=== PATIENT | male | born 1960 | race Caucasian/White ===

== ENCOUNTER 2017-05-03 20:21 | Emergency (ER) | payer OTHER ==
[~2017-05-03] VITALS: Ht 175.3 cm; Wt 99.5 kg
[~2017-05-03 20:21] MED LIST: ALLO100T PO; COLC0.6T6 PO; HYDR-3498 PO; HYDR-762 PO; IBUP800T25 PO
[2017-05-03 20:30] VITALS: Ht 175.3 cm; Wt 99.5 kg
[2017-05-03] MEDS ORDERED: KETOROLAC 30 MG INJ IM STA (22:05)
--- NOTE | 2017-05-03 22:23 | ERD ---
ER Documentation Chief Complaint Date/Time DATE: 05/03/17 TIME: 22:20 Chief Complaint L shoulder pain x 2 weeks went to pcp last wk had ekg and cxr HPI Patient is a 56-year-old male with a past medical history of gout who presents to the ED with left neck left shoulder left scapula and left arm pain 3 weeks. He states that the pain came on suddenly 3 weeks ago. He denies chest pain or cough or shortness of breath. He denies leg pain or leg swelling. 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 He states that he has pain on palpation on that whole area. She also complains of mild numbness and tingling in his left arm. He denies headache or dizziness, blurry vision or hearing loss. He states that he went to his primary care who did an EKG and a chest x-ray was within normal limits. He also has been taking Menoken for his pain which is helped minimally with his symptoms. ROS All systems reviewed and are negative except as per history of present illness. Medications Home Meds Active Scripts Methylprednisolone* (Medrol* DOSE PACK) 4 Mg/Dose-Pack Tab.ds.pk, 4 MG PO . DIRECTED for 5 Days, PACKET Prov:MARIBETH LAINEZ PA-C 05/03/17 Tramadol HCl (Tramadol HCl) 50 Mg Tablet, 50 MG PO Q6 Y for PAIN, #20 TAB Prov:MARIBETH LAINEZ PA-C 05/03/17 Hydrocodone Bit-Acetaminophen* (Menoken*) 10-325 Mg Tablet, 1 TAB PO Q4H Y for PAIN, #15 TAB Prov:JERI BUTLER PA-C 05/28/16 Colchicine* (Colcrys*) 0.6 Mg Tablet, 0.6 MG PO as directed, #3 TAB Prov:JERI BUTLER PA-C 05/28/16 Ibuprofen* (Ibuprofen*) 800 Mg Tab, 800 MG PO Q6H Y for PAIN, #10 TAB Prov:SUE BLOCK DO 07/22/15 Hydrocodone Bit-Acetaminophen* ([place]*) 5-325 Mg Tab, 1 TAB PO Q4H Y for PAIN, # 14 TAB Prov:SUE BLOCK DO 07/22/15 Colchicine* (Colcrys*) 0.6 Mg Tablet, 0.6 MG PO BID, #10 TAB Prov:GREEN,SUE DO 07/22/15 Reported Medications Allopurinol* (Allopurinol*) 100 Mg Tablet, 100 MG PO BID 12/23/11 Allergies Allergies: Coded Allergies: No Known Allergies (Verified Allergy, Mild, NONE, 02/08/12) PMhx/Soc History of Surgery: Yes (KIDNEY) Anesthesia Reaction: No Hx Neurological Disorder: No Hx Respiratory Disorders: No Hx Cardiac Disorders: No Hx Psychiatric Problems: No Hx Miscellaneous Medical Probl: Yes (GOUT) Hx Alcohol Use: No Hx Substance Use: No Hx Tobacco Use: No Smoking Status: Never smoker FmHx Family History: No coronary disease, No diabetes, No other Physical Exam Vitals Vital Signs Date Time Temp Pulse Resp B/P Pulse Ox O2 Delivery O2 Flow Rate FiO2 05/03/17 20:30 96.8 62 20 154/82 97 Physical Exam GENERAL: Well-developed, well-nourished male. Appears in no acute distress. ENT: Moist mucous membranes. No uvula deviation. No kissing tonsils. No exudates. No spinal step-offs or deformities. No spinal tenderness. Range of motion of neck intact positive cervical productive colopathy on the left side. Tenderness to the sternocleidomastoid as well as the scapula and the inferior scapula. NECK: Supple. No lymphadenopathy or thyromegaly. No meningismus. negative kernig. negative brudinski. LUNG: Clear to auscultation bilaterally. No rhonchi, wheezing, rales or coarse breath sounds. HEART: Regular rate and rhythm. No murmurs, rubs or gallops. Extremities: Equal pulses bilaterally. No peripheral clubbing, cyanosis or edema. No unilateral leg swelling. No snuffbox tenderness. Radius, ulnar and median nerve intact. Tenderness to the left shoulder. Range of motion intact. Full extension and elevation however with pain. No erythema or swelling. No warmth. NEUROLOGIC: Alert and oriented. Moving all four extremities. 5/5 strength in all extremities. Normal speech. Steady gait. SKIN: Normal color. Warm and dry. No rashes or lesions. Capillary refill < 2 seconds Results 24 hrs Laboratory Tests Test 05/03/17 22:45 Uric Acid 6.3mg/dl Current Medications Medications (Trade) Dose Ordered Sig/Smiley Route PRN Reason Start Time Stop Time Status Last Admin Dose Admin Ketorolac Tromethamine (Toradol) 30 mg ONCE STAT IM 05/03/17 22:05 05/03/17 22:07 DC 05/03/17 22:50 Tramadol HCl (Ultram) 50 mg ONCE ONCE PO 05/04/17 00:00 05/04/17 00:01 Procedures/MDM ER COURSE: I kept the patient and/or family informed of laboratory and diagnostic imaging results throughout the emergency room course. IMAGING STUDIES EKG performed, read by dR Braxton 54bpm, normal sinus rhythm, normal axis, no acute ST segment changes, no T wave inversion [place] [id number] Radiology Main Line: [phone] DIAGNOSTIC IMAGING REPORT Patient: MARY CALIX : 1960 Age: 56 Sex: M MR #: [id number] DOS: 05/03/175 Ordering MD: MARIBETH LAINEZ PA-C Location: [facility] Room/Bed: PROCEDURE: XR scapula. CLINICAL INDICATION: Pain. TECHNIQUE: 2 views of the left scapula were obtained. COMPARISON: There are no similar studies submitted for comparison. FINDINGS: There is no acute fracture or dislocation.No destructive osseous lesion is identified.The acromioclavicular joint is intact. The visualized portions of the chest are within normal limits. IMPRESSION: No acute fracture or dislocation. RPTAT: HIKT .Art Saldana MD, Date Time Electronically viewed and signed by .Art Saldana MD, MD on 05/03/2017 23:07 .T/ CC: MARIBETH LAINEZ PA-C [place] [id number] Radiology Main Line: [phone] DIAGNOSTIC IMAGING REPORT Patient: MARY CALIX : 1960 Age: 56 Sex: M MR #: [id number] DOS: 05/03/17 2205 Ordering MD: MARIBETH LAINEZ PA-C Location: [facility] Room/Bed: PROCEDURE: XR shoulder. CLINICAL INDICATION: Trauma. TECHNIQUE: Three views of the left shoulder were obtained. COMPARISON: There are no similar studies submitted for comparison. FINDINGS: There is no acute fracture or dislocation.No destructive osseous lesion is identified.The acromioclavicular joint is intact. The visualized portions of the chest are within normal limits. IMPRESSION: No acute fracture or dislocation. RPTAT: HIKT .Art Saldana MD, Date Time Electronically viewed and signed by .Art Saldana MD, MD on 05/03/2017 23:08 .T/ CC: MARIBETH LAINEZ PA-C MEDICATIONS Toradol and tramadol tolerated well with no adverse reaction is seen improvement in symptoms. MEDICAL DECISION MAKING: This is a 56-year-old male who presents with left neck, left shoulder and left scapula and arm pain 3 weeks. Vital signs were reviewed. Patient is afebrile. Patient is not hypoxic. Patient is not toxic or ill-appearing. Patient is nontoxic or ill-appearing. X-rays of by radiologist unremarkable for fracture dislocation. Uric acid was within normal limits. Patient likely has muscle strain versus muscle sprain versus cervical radiculopathy versus nerve impingement. Low suspicion for dislocation, fracture, septic joint, compartment syndrome, osteomyelitis, cellulitis, avascular necrosis, neurological injury, vascular injury, tendon laceration. Low suspicion for dislocation, fracture, epidural abscess, herniation, osteomyelitis, meningitis, neurological deficit. Low suspicion for ACS, PE, AAA, dissection, DVT DISCHARGE: At this time, patient is stable for discharge and outpatient management with no new complaints during the ER course. Patient was sent home with tramadol and a Medrol Dosepak copy of all imaging reports and follow-up with orthopedic.. Patient will be discharged home with instructions to recheck for new or worsening symptoms such as fever, nausea, weakness, LOC and to follow up with primary care in the next 1-2 days. Patient was advised to return to the ER for any new or worsening symptoms. Plan was discussed and patient and/or family understands and agrees. Home instructions were given. Departure Diagnosis: Primary Impression: Shoulder pain, left Chronicity: acute Qualified Code: M25.512 - Acute pain of left shoulder Condition: Stable MARIBETH LAIENZ PA-C May 03, 2017 22:23
--- NOTE | 2017-05-03 23:07 | RADRPT ---
PROCEDURE: XR scapula. CLINICAL INDICATION: Pain. TECHNIQUE: 2 views of the left scapula were obtained. COMPARISON: There are no similar studies submitted for comparison. FINDINGS: There is no acute fracture or dislocation.No destructive osseous lesion is identified.The acromiocla vicular joint is intact. The visualized portions of the chest are within normal limits. IMPRESSION: No acute fracture or dislocation. RPTAT: HIKT .Art Saldana MD, MD Date Time Electronically viewed and signed by .Art Saldana MD, on 05/03/2017 23:07 .T/
--- NOTE | 2017-05-03 23:08 | RADRPT ---
PROCEDURE: XR shoulder. CLINICAL INDICATION: Trauma. TECHNIQUE: Three views of the left shoulder were obtained. COMPARISON: There are no similar studies submitted for comparison. FINDINGS: There is no acute fracture or dislocation.No destructive osseous lesion is identified.The acromiocla vicular joint is intact. The visualized portions of the chest are within normal limits. IMPRESSION: No acute fracture or dislocation. RPTAT: HIKT .Art Saldana MD, MD Date Time Electronically viewed and signed by .Art Saldana MD, MD on 05/03/2017 23:08 .T/
[2017-05-03] MEDS ORDERED: TRAM50TA2 PO (23:54)
[2017-05-03] MEDS ORDERED: MED4DP PO (23:54)
[2017-05-04] MEDS ORDERED: traMADol 50 MG TAB PO ONE
[2017-05-04 00:11] VITALS: BP 143/76; PULSE 70; RESP 16
== END 2017-05-04 00:12 | disposition home or self-care (01) ==
LOC: FTE 20:21
DX: M25.512 Pain in left shoulder (principal); R00.2 Palpitations
CPT/HCPCS: 73010; 73030; 84560; 93005; 96372; 99284; J1885

== ENCOUNTER 2017-09-22 23:08 | Emergency (ER) | payer OTHER ==
[~2017-09-22] VITALS: Ht 167.6 cm; Wt 97.9 kg
[~2017-09-22 23:08] MED LIST changes: +MED4DP PO; +TRAM50TA2 PO
[2017-09-22 23:25] VITALS: Ht 167.6 cm; Wt 97.9 kg
--- NOTE | 2017-09-22 23:38 | ERD ---
ER Documentation Chief Complaint Chief Complaint CP since yesterday HPI The patient is a 57-year-old male, presenting to the ER because of substernal chest discomfort intermittently for 1 day, 04/24, no aggravating or relieving factor, denies chest pain with exertion/vomiting/diaphoresis. He denies fever, chills, neck pain, dyspnea, abdominal pain, vomiting. He complains of dysuria and low back pain similar to symptoms he had when he had kidney stones. He does not smoke nor drink Past medical history: Gout, hypertension, history of kidney stone, cholelithiasis, right lung nodule Past surgical history: Kidney stone ROS All systems reviewed and are negative except as per history of present illness. Medications Home Meds Active Scripts Hydrocodone/Acetaminophen ([facility] 5-325 Tablet) 1 Each Tablet, 1 TAB PO Q6H Y for PAIN, #7 TAB Prov:ROBERT VELOZ MD 09/23/17 Methylprednisolone* (Medrol* DOSE PACK) 4 Mg/Dose-Pack Tab.ds.pk, 4 MG PO . DIRECTED for 5 Days, PACKET Prov:MARIBETH LAINEZ PA-C 05/03/17 Tramadol HCl (Tramadol HCl) 50 Mg Tablet, 50 MG PO Q6 Y for PAIN, #20 TAB Prov:MARIBETH LAINEZ PA-C 05/03/17 Hydrocodone Bit-Acetaminophen* ([facility]*) 10-325 Mg Tablet, 1 TAB PO Q4H Y for PAIN, #15 TAB Prov:JERI BUTLER PA-C 05/28/16 Ibuprofen* (Ibuprofen*) 800 Mg Tab, 800 MG PO Q6H Y for PAIN, #10 TAB Prov:SUE BLOCK DO 07/22/15 Reported Medications Ibuprofen* (Ibuprofen*) 600 Mg Tablet, 600 MG PO Q6H Y for PAIN, TAB 09/23/17 Allopurinol* (Allopurinol*) 100 Mg Tablet, 100 MG PO BID 12/23/11 Discontinued Scripts Colchicine* (Colcrys*) 0.6 Mg Tablet, 0.6 MG PO as directed, #3 TAB Prov:JERI BUTLER PA-C 05/28/16 Hydrocodone Bit-Acetaminophen* ([facility]*) 5-325 Mg Tab, 1 TAB PO Q4H Y for PAIN, # 14 TAB Prov:SUE BLOCK DO 07/22/15 Colchicine* (Colcrys*) 0.6 Mg Tablet, 0.6 MG PO BID, #10 TAB Prov:SUE BLOCK DO 07/22/15 Allergies Allergies: Coded Allergies: No Known Allergies (Unverified Allergy, Mild, NONE, 09/23/17) PMhx/Soc History of Surgery: Yes (KIDNEY) Anesthesia Reaction: No Hx Neurological Disorder: No Hx Respiratory Disorders: No Hx Cardiac Disorders: No Hx Psychiatric Problems: No Hx Miscellaneous Medical Probl: Yes (GOUT) Hx Alcohol Use: No Hx Substance Use: No Hx Tobacco Use: No Physical Exam Vitals Vital Signs Date Time Temp Pulse Resp B/P Pulse Ox O2 Delivery O2 Flow Rate FiO2 09/22/17 23:45 97.6 89 20 150/81 97 Room Air 09/22/17 23:25 97.6 66 20 146/87 97 Physical Exam Const: No acute distress. Head: Atraumatic. Eyes: Normal Conjunctiva. ENT: Normal External Ears, Nose and Mouth. Neck: Full range of motion. No meningismus. Resp: Clear to auscultation bilaterally. Cardio: Regular rate and rhythm. Abd: Soft, non distended, normal bowel sounds, minimal right lumbar tenderness Skin: No petechiae or rashes. Back: No midline or flank tenderness. Ext: No cyanosis, or edema. Neur: Awake and alert. No focal deficit Psych: Normal Mood and Affect. Result Diagram: 09/22/17 2343 09/22/17 2343 Results 24 hrs Laboratory Tests Test 09/22/17 23:43 09/23/17 01:07 09/23/17 02:14 White Blood Count 8.410^3/ul Red Blood Count 5.1210^6/ul Hemoglobin 15.2g/dl Hematocrit 45.5% Mean Corpuscular Volume 88.9fl Mean Corpuscular Hemoglobin 29.7pg Mean Corpuscular Hemoglobin Concent 33.4g/dl Red Cell Distribution Width 13.2% Platelet Count 79334^3/UL Mean Platelet Volume 10.4fl Neutrophils % 45.9% Lymphocytes % 42.7% Monocytes % 9.6% Eosinophils % 1.1% Basophils % 0.5% Nucleated Red Blood Cells % 0.0/100WBC Neutrophils # 3.910^3/ul Lymphocytes # 3.610^3/ul Monocytes # 0.810^3/ul Eosinophils # 0.110^3/ul Basophils # 0.010^3/ul Nucleated Red Blood Cells # 0.010^3/ul Sodium Level 143mmol/L Potassium Level 4.2mmol/L Chloride Level 104mmol/L Carbon Dioxide Level 29mmol/L Anion Gap 14 Blood Urea Nitrogen 15mg/dl Creatinine 1.36mg/dl Glucose Level 92mg/dl Calcium Level 9.9mg/dl Total Bilirubin 0.3mg/dl Direct Bilirubin 0.00mg/dl Indirect Bilirubin 0.3mg/dl Aspartate Amino Transf (AST/SGOT) 58IU/L Alanine Aminotransferase (ALT/SGPT) 106IU/L Alkaline Phosphatase 78IU/L Troponin I < 0.012ng/ml 0.013ng/ml Total Protein 8.5g/dl Albumin 4.7g/dl Globulin 3.80g/dl Albumin/Globulin Ratio 1.23 Lipase 97U/L Bedside Urine pH (LAB) 5.5 Bedside Urine Protein (LAB) Negative Bedside Urine Glucose (UA) Negative Bedside Urine Ketones (LAB) Negative Bedside Urine Blood Negative Bedside Urine Nitrite (LAB) Negative Bedside Urine Leukocyte Esterase (L Negative Current Medications Medications (Trade) Dose Ordered Sig/Smiley Route PRN Reason Start Time Stop Time Status Last Admin Dose Admin Morphine Sulfate (morphine) 2 mg ONCE ONCE IV 09/23/17 00:00 09/23/17 00:01 DC 09/23/17 00:22 Ondansetron HCl (Zofran Inj) 4 mg ONCE STAT IV 09/22/17 23:49 09/22/17 23:51 DC 09/23/17 00:22 Procedures/MDM EK hours read by emergency physician Rate/Rhythm: Normal Sinus Rhythm 65 beats/min QRS, ST, T-waves: No ST elevation, no T inversion Impression: Normal EKG EK:38 hours read by emergency physician Rate/Rhythm: Sinus Bradycardia 54 beats/min QRS, ST, T-waves: No ST elevation, nonspecific T abnormality Impression: Abnormal EKG [place] [id number] Radiology Main Line: [phone] DIAGNOSTIC IMAGING REPORT Patient: MARY CALIX : 1960 Age: 57 Sex: M [id number] [id number] DOS: 09/22/17 2349 Ordering MD: ROBERT VELOZ MD Location: E/R Room/Bed: PROCEDURE: Portable chest x-ray. CLINICAL INDICATION: Abdominal pain. TECHNIQUE: Portable AP view of the chest. COMPARISON: None. FINDINGS: No pulmonary edema or conolidation is identified. The cardiac silhouette is magnified. No pleural effusion is seen. There is no pneumothorax. There is no pneumoperitoneum. IMPRESSION: 1. No evidence of acute cardiopulmonary disease. 2. No pneumoperitoneum. RPTAT: HTAR .Kuldeep Clements MD, MD Date Time Electronically viewed and signed by .Kuldeep Clements MD, MD on 09/23/2017 00:37 .R/ CC: ROBERT VELOZ MD MEDICAL MAKING DECISION: The patient is a 57-year-old male, presenting with acute chest pain and back pain of unclear etiology. He was treated with morphine 2 mg IV for pain and Zofran 4 IV for nausea with good response. He remained well, without any symptoms in the emergency department and wanted to go home The differential diagnoses for acute chest pain considered include but are not limited to acute coronary syndrome, acute myocardial infarction, pericarditis, pulmonary embolism, aortic dissection, pneumonia, pleural effusion, pneumothorax , GERD, chest wall pain. The differential diagnoses for acute back pain considered include but are not limited to caudal equina syndrome, spinal abscess, DJD, diskitis, lumbar radiculopathy. Departure Diagnosis: Primary Impression: Chest pain Additional Impression: Back pain Condition: Good Comments He was discharged with [facility] The patient presents with chest pain and I considered pulmonary embolism, aortic dissection, pneumothorax among other diagnoses. Evaluation for acute coronary syndrome was performed. The HEART score (www.mdcalc.com) was utilized for risk stratification and found to be <= 3. Repeat EKG and troponin @ 3 hours were unchanged. Based on this evaluation the patients risk of major adverse cardiac events is <1%. Shared decision making occurred with patient and the decision has been made to discharge the patient for outpatient evaluation and functional study within 72 hours. I discussed the findings with the patient. I advised the patient to follow-up with his annealer in about 1-2 days, sooner if needed and return if any concern. Disclaimer: Inadvertent spelling and grammatical errors are likely due to EHR/ dictation software use and do not reflect on the overall quality of patient care. Also, please note that the electronic time recorded on this note does not necessarily reflect the actual time of the patient encounter. ROBERT VELOZ MD Sep 22, 2017 23:38
--- NOTE | 2017-09-22 23:38 | ERD ---
ER Documentation Chief Complaint Chief Complaint CP since yesterday HPI The patient is a 57-year-old male, presenting to the ER because of substernal chest discomfort intermittently for 1 day, 04/24, no aggravating or relieving factor, denies chest pain with exertion/vomiting/diaphoresis. He denies fever, chills, neck pain, dyspnea, abdominal pain, vomiting. He complains of dysuria and low back pain similar to symptoms he had when he had kidney stones. He does not smoke nor drink Past medical history: Gout, hypertension, history of kidney stone, cholelithiasis, right lung nodule Past surgical history: Kidney stone ROS All systems reviewed and are negative except as per history of present illness. Medications Home Meds Active Scripts Hydrocodone/Acetaminophen ([place] 5-325 Tablet) 1 Each Tablet, 1 TAB PO Q6H Y for PAIN, #7 TAB Prov:ROBERT VELOZ MD 09/23/17 Methylprednisolone* (Medrol* DOSE PACK) 4 Mg/Dose-Pack Tab.ds.pk, 4 MG PO . DIRECTED for 5 Days, PACKET Prov:MARIBETH LAINEZ PA-C 05/03/17 Tramadol HCl (Tramadol HCl) 50 Mg Tablet, 50 MG PO Q6 Y for PAIN, #20 TAB Prov:MARIBETH LAINEZ PA-C 05/03/17 Hydrocodone Bit-Acetaminophen* ([place]*) 10-325 Mg Tablet, 1 TAB PO Q4H Y for PAIN, #15 TAB Prov:JERI BUTLER PA-C 05/28/16 Ibuprofen* (Ibuprofen*) 800 Mg Tab, 800 MG PO Q6H Y for PAIN, #10 TAB Prov:SUE BLOCK DO 07/22/15 Reported Medications Ibuprofen* (Ibuprofen*) 600 Mg Tablet, 600 MG PO Q6H Y for PAIN, TAB 09/23/17 Allopurinol* (Allopurinol*) 100 Mg Tablet, 100 MG PO BID 12/23/11 Discontinued Scripts Colchicine* (Colcrys*) 0.6 Mg Tablet, 0.6 MG PO as directed, #3 TAB Prov:JERI BUTLER PA-C 05/28/16 Hydrocodone Bit-Acetaminophen* ([place]*) 5-325 Mg Tab, 1 TAB PO Q4H Y for PAIN, # 14 TAB Prov:SUE BLOCK DO 07/22/15 Colchicine* (Colcrys*) 0.6 Mg Tablet, 0.6 MG PO BID, #10 TAB Prov:SUE BLOCK DO 07/22/15 Allergies Allergies: Coded Allergies: No Known Allergies (Unverified Allergy, Mild, NONE, 09/23/17) PMhx/Soc History of Surgery: Yes (KIDNEY) Anesthesia Reaction: No Hx Neurological Disorder: No Hx Respiratory Disorders: No Hx Cardiac Disorders: No Hx Psychiatric Problems: No Hx Miscellaneous Medical Probl: Yes (GOUT) Hx Alcohol Use: No Hx Substance Use: No Hx Tobacco Use: No Physical Exam Vitals Vital Signs Date Time Temp Pulse Resp B/P Pulse Ox O2 Delivery O2 Flow Rate FiO2 09/22/17 23:45 97.6 89 20 150/81 97 Room Air 09/22/17 23:25 97.6 66 20 146/87 97 Physical Exam Const: No acute distress. Head: Atraumatic. Eyes: Normal Conjunctiva. ENT: Normal External Ears, Nose and Mouth. Neck: Full range of motion. No meningismus. Resp: Clear to auscultation bilaterally. Cardio: Regular rate and rhythm. Abd: Soft, non distended, normal bowel sounds, minimal right lumbar tenderness Skin: No petechiae or rashes. Back: No midline or flank tenderness. Ext: No cyanosis, or edema. Neur: Awake and alert. No focal deficit Psych: Normal Mood and Affect. Result Diagram: 09/22/17 2343 09/22/17 2343 Results 24 hrs Laboratory Tests Test 09/22/17 23:43 09/23/17 01:07 09/23/17 02:14 White Blood Count 8.410^3/ul Red Blood Count 5.1210^6/ul Hemoglobin 15.2g/dl Hematocrit 45.5% Mean Corpuscular Volume 88.9fl Mean Corpuscular Hemoglobin 29.7pg Mean Corpuscular Hemoglobin Concent 33.4g/dl Red Cell Distribution Width 13.2% Platelet Count 63489^3/UL Mean Platelet Volume 10.4fl Neutrophils % 45.9% Lymphocytes % 42.7% Monocytes % 9.6% Eosinophils % 1.1% Basophils % 0.5% Nucleated Red Blood Cells % 0.0/100WBC Neutrophils # 3.910^3/ul Lymphocytes # 3.610^3/ul Monocytes # 0.810^3/ul Eosinophils # 0.110^3/ul Basophils # 0.010^3/ul Nucleated Red Blood Cells # 0.010^3/ul Sodium Level 143mmol/L Potassium Level 4.2mmol/L Chloride Level 104mmol/L Carbon Dioxide Level 29mmol/L Anion Gap 14 Blood Urea Nitrogen 15mg/dl Creatinine 1.36mg/dl Glucose Level 92mg/dl Calcium Level 9.9mg/dl Total Bilirubin 0.3mg/dl Direct Bilirubin 0.00mg/dl Indirect Bilirubin 0.3mg/dl Aspartate Amino Transf (AST/SGOT) 58IU/L Alanine Aminotransferase (ALT/SGPT) 106IU/L Alkaline Phosphatase 78IU/L Troponin I < 0.012ng/ml 0.013ng/ml Total Protein 8.5g/dl Albumin 4.7g/dl Globulin 3.80g/dl Albumin/Globulin Ratio 1.23 Lipase 97U/L Bedside Urine pH (LAB) 5.5 Bedside Urine Protein (LAB) Negative Bedside Urine Glucose (UA) Negative Bedside Urine Ketones (LAB) Negative Bedside Urine Blood Negative Bedside Urine Nitrite (LAB) Negative Bedside Urine Leukocyte Esterase (L Negative Current Medications Medications (Trade) Dose Ordered Sig/Smiley Route PRN Reason Start Time Stop Time Status Last Admin Dose Admin Morphine Sulfate (morphine) 2 mg ONCE ONCE IV 09/23/17 00:00 09/23/17 00:01 DC 09/23/17 00:22 Ondansetron HCl (Zofran Inj) 4 mg ONCE STAT IV 09/22/17 23:49 09/22/17 23:51 DC 09/23/17 00:22 Procedures/MDM EK hours read by emergency physician Rate/Rhythm: Normal Sinus Rhythm 65 beats/min QRS, ST, T-waves: No ST elevation, no T inversion Impression: Normal EKG EK:38 hours read by emergency physician Rate/Rhythm: Sinus Bradycardia 54 beats/min QRS, ST, T-waves: No ST elevation, nonspecific T abnormality Impression: Abnormal EKG [place] [id number] Radiology Main Line: [phone] DIAGNOSTIC IMAGING REPORT Patient: MARY CALIX : 1960 Age: 57 Sex: M [id number] DOS: 09/22/17 2349 Ordering MD: ROBERT VELOZ MD Location: E/R Room/Bed: PROCEDURE: Portable chest x-ray. CLINICAL INDICATION: Abdominal pain. TECHNIQUE: Portable AP view of the chest. COMPARISON: None. FINDINGS: No pulmonary edema or conolidation is identified. The cardiac silhouette is magnified. No pleural effusion is seen. There is no pneumothorax. There is no pneumoperitoneum. IMPRESSION: 1. No evidence of acute cardiopulmonary disease. 2. No pneumoperitoneum. RPTAT: HTAR .Kuldeep Clements MD, MD Date Time Electronically viewed and signed by .Kuldeep Clements MD, MD on 09/23/2017 00:37 .R/ CC: ROBERT VELOZ MD MEDICAL MAKING DECISION: The patient is a 57-year-old male, presenting with acute chest pain and back pain of unclear etiology. He was treated with morphine 2 mg IV for pain and Zofran 4 IV for nausea with good response. He remained well, without any symptoms in the emergency department and wanted to go home The differential diagnoses for acute chest pain considered include but are not limited to acute coronary syndrome, acute myocardial infarction, pericarditis, pulmonary embolism, aortic dissection, pneumonia, pleural effusion, pneumothorax , GERD, chest wall pain. The differential diagnoses for acute back pain considered include but are not limited to caudal equina syndrome, spinal abscess, DJD, diskitis, lumbar radiculopathy. Departure Diagnosis: Primary Impression: Chest pain Additional Impression: Back pain Condition: Good Comments He was discharged with [place] The patient presents with chest pain and I considered pulmonary embolism, aortic dissection, pneumothorax among other diagnoses. Evaluation for acute coronary syndrome was performed. The HEART score (www.mdcalc.com) was utilized for risk stratification and found to be <= 3. Repeat EKG and troponin @ 3 hours were unchanged. Based on this evaluation the patients risk of major adverse cardiac events is <1%. Shared decision making occurred with patient and the decision has been made to discharge the patient for outpatient evaluation and functional study within 72 hours. I discussed the findings with the patient. I advised the patient to follow-up with his nurse anesthetist in about 1-2 days, sooner if needed and return if any concern. Disclaimer: Inadvertent spelling and grammatical errors are likely due to EHR/ dictation software use and do not reflect on the overall quality of patient care. Also, please note that the electronic time recorded on this note does not necessarily reflect the actual time of the patient encounter. ROBERT VELOZ MD Sep 22, 2017 23:38
--- NOTE | 2017-09-22 23:38 | ERD ---
ER Documentation Chief Complaint Chief Complaint CP since yesterday HPI The patient is a 57-year-old male, presenting to the ER because of substernal chest discomfort intermittently for 1 day, 04/24, no aggravating or relieving factor, denies chest pain with exertion/vomiting/diaphoresis. He denies fever, chills, neck pain, dyspnea, abdominal pain, vomiting. He complains of dysuria and low back pain similar to symptoms he had when he had kidney stones. He does not smoke nor drink Past medical history: Gout, hypertension, history of kidney stone, cholelithiasis, right lung nodule Past surgical history: Kidney stone ROS All systems reviewed and are negative except as per history of present illness. Medications Home Meds Active Scripts Hydrocodone/Acetaminophen ([place] 5-325 Tablet) 1 Each Tablet, 1 TAB PO Q6H Y for PAIN, #7 TAB Prov:ROBERT VELOZ MD 09/23/17 Methylprednisolone* (Medrol* DOSE PACK) 4 Mg/Dose-Pack Tab.ds.pk, 4 MG PO . DIRECTED for 5 Days, PACKET Prov:MARIBETH LAINEZ PA-C 05/03/17 Tramadol HCl (Tramadol HCl) 50 Mg Tablet, 50 MG PO Q6 Y for PAIN, #20 TAB Prov:MARIBETH LAINEZ PA-C 05/03/17 Hydrocodone Bit-Acetaminophen* ([place]*) 10-325 Mg Tablet, 1 TAB PO Q4H Y for PAIN, #15 TAB Prov:JERI BUTLER PA-C 05/28/16 Ibuprofen* (Ibuprofen*) 800 Mg Tab, 800 MG PO Q6H Y for PAIN, #10 TAB Prov:SUE BLOCK DO 07/22/15 Reported Medications Ibuprofen* (Ibuprofen*) 600 Mg Tablet, 600 MG PO Q6H Y for PAIN, TAB 09/23/17 Allopurinol* (Allopurinol*) 100 Mg Tablet, 100 MG PO BID 12/23/11 Discontinued Scripts Colchicine* (Colcrys*) 0.6 Mg Tablet, 0.6 MG PO as directed, #3 TAB Prov:JERI BUTLER PA-C 05/28/16 Hydrocodone Bit-Acetaminophen* ([place]*) 5-325 Mg Tab, 1 TAB PO Q4H Y for PAIN, # 14 TAB Prov:SUE BLOCK DO 07/22/15 Colchicine* (Colcrys*) 0.6 Mg Tablet, 0.6 MG PO BID, #10 TAB Prov:SUE BLOCK DO 07/22/15 Allergies Allergies: Coded Allergies: No Known Allergies (Unverified Allergy, Mild, NONE, 09/23/17) PMhx/Soc History of Surgery: Yes (KIDNEY) Anesthesia Reaction: No Hx Neurological Disorder: No Hx Respiratory Disorders: No Hx Cardiac Disorders: No Hx Psychiatric Problems: No Hx Miscellaneous Medical Probl: Yes (GOUT) Hx Alcohol Use: No Hx Substance Use: No Hx Tobacco Use: No Physical Exam Vitals Vital Signs Date Time Temp Pulse Resp B/P Pulse Ox O2 Delivery O2 Flow Rate FiO2 09/22/17 23:45 97.6 89 20 150/81 97 Room Air 09/22/17 23:25 97.6 66 20 146/87 97 Physical Exam Const: No acute distress. Head: Atraumatic. Eyes: Normal Conjunctiva. ENT: Normal External Ears, Nose and Mouth. Neck: Full range of motion. No meningismus. Resp: Clear to auscultation bilaterally. Cardio: Regular rate and rhythm. Abd: Soft, non distended, normal bowel sounds, minimal right lumbar tenderness Skin: No petechiae or rashes. Back: No midline or flank tenderness. Ext: No cyanosis, or edema. Neur: Awake and alert. No focal deficit Psych: Normal Mood and Affect. Result Diagram: 09/22/17 2343 09/22/17 2343 Results 24 hrs Laboratory Tests Test 09/22/17 23:43 09/23/17 01:07 09/23/17 02:14 White Blood Count 8.410^3/ul Red Blood Count 5.1210^6/ul Hemoglobin 15.2g/dl Hematocrit 45.5% Mean Corpuscular Volume 88.9fl Mean Corpuscular Hemoglobin 29.7pg Mean Corpuscular Hemoglobin Concent 33.4g/dl Red Cell Distribution Width 13.2% Platelet Count 34979^3/UL Mean Platelet Volume 10.4fl Neutrophils % 45.9% Lymphocytes % 42.7% Monocytes % 9.6% Eosinophils % 1.1% Basophils % 0.5% Nucleated Red Blood Cells % 0.0/100WBC Neutrophils # 3.910^3/ul Lymphocytes # 3.610^3/ul Monocytes # 0.810^3/ul Eosinophils # 0.110^3/ul Basophils # 0.010^3/ul Nucleated Red Blood Cells # 0.010^3/ul Sodium Level 143mmol/L Potassium Level 4.2mmol/L Chloride Level 104mmol/L Carbon Dioxide Level 29mmol/L Anion Gap 14 Blood Urea Nitrogen 15mg/dl Creatinine 1.36mg/dl Glucose Level 92mg/dl Calcium Level 9.9mg/dl Total Bilirubin 0.3mg/dl Direct Bilirubin 0.00mg/dl Indirect Bilirubin 0.3mg/dl Aspartate Amino Transf (AST/SGOT) 58IU/L Alanine Aminotransferase (ALT/SGPT) 106IU/L Alkaline Phosphatase 78IU/L Troponin I < 0.012ng/ml 0.013ng/ml Total Protein 8.5g/dl Albumin 4.7g/dl Globulin 3.80g/dl Albumin/Globulin Ratio 1.23 Lipase 97U/L Bedside Urine pH (LAB) 5.5 Bedside Urine Protein (LAB) Negative Bedside Urine Glucose (UA) Negative Bedside Urine Ketones (LAB) Negative Bedside Urine Blood Negative Bedside Urine Nitrite (LAB) Negative Bedside Urine Leukocyte Esterase (L Negative Current Medications Medications (Trade) Dose Ordered Sig/Smiley Route PRN Reason Start Time Stop Time Status Last Admin Dose Admin Morphine Sulfate (morphine) 2 mg ONCE ONCE IV 09/23/17 00:00 09/23/17 00:01 DC 09/23/17 00:22 Ondansetron HCl (Zofran Inj) 4 mg ONCE STAT IV 09/22/17 23:49 09/22/17 23:51 DC 09/23/17 00:22 Procedures/MDM EK hours read by emergency physician Rate/Rhythm: Normal Sinus Rhythm 65 beats/min QRS, ST, T-waves: No ST elevation, no T inversion Impression: Normal EKG EK:38 hours read by emergency physician Rate/Rhythm: Sinus Bradycardia 54 beats/min QRS, ST, T-waves: No ST elevation, nonspecific T abnormality Impression: Abnormal EKG [place] [id number] Radiology Main Line: [phone] DIAGNOSTIC IMAGING REPORT Patient: MARY CALIX : 1960 Age: 57 Sex: M [id number] DOS: 09/22/17 2349 Ordering MD: ROBERT VELOZ MD Location: E/R Room/Bed: PROCEDURE: Portable chest x-ray. CLINICAL INDICATION: Abdominal pain. TECHNIQUE: Portable AP view of the chest. COMPARISON: None. FINDINGS: No pulmonary edema or conolidation is identified. The cardiac silhouette is magnified. No pleural effusion is seen. There is no pneumothorax. There is no pneumoperitoneum. IMPRESSION: 1. No evidence of acute cardiopulmonary disease. 2. No pneumoperitoneum. RPTAT: HTAR .Kuldeep Clements MD, MD Date Time Electronically viewed and signed by .Kuldeep Clements MD, MD on 09/23/2017 00:37 .R/ CC: ROBERT VELOZ MD MEDICAL MAKING DECISION: The patient is a 57-year-old male, presenting with acute chest pain and back pain of unclear etiology. He was treated with morphine 2 mg IV for pain and Zofran 4 IV for nausea with good response. He remained well, without any symptoms in the emergency department and wanted to go home The differential diagnoses for acute chest pain considered include but are not limited to acute coronary syndrome, acute myocardial infarction, pericarditis, pulmonary embolism, aortic dissection, pneumonia, pleural effusion, pneumothorax , GERD, chest wall pain. The differential diagnoses for acute back pain considered include but are not limited to caudal equina syndrome, spinal abscess, DJD, diskitis, lumbar radiculopathy. Departure Diagnosis: Primary Impression: Chest pain Additional Impression: Back pain Condition: Good Comments He was discharged with [place] The patient presents with chest pain and I considered pulmonary embolism, aortic dissection, pneumothorax among other diagnoses. Evaluation for acute coronary syndrome was performed. The HEART score (www.mdcalc.com) was utilized for risk stratification and found to be <= 3. Repeat EKG and troponin @ 3 hours were unchanged. Based on this evaluation the patients risk of major adverse cardiac events is <1%. Shared decision making occurred with patient and the decision has been made to discharge the patient for outpatient evaluation and functional study within 72 hours. I discussed the findings with the patient. 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 Disclaimer: Inadvertent spelling and grammatical errors are likely due to EHR/ dictation software use and do not reflect on the overall quality of patient care. Also, please note that the electronic time recorded on this note does not necessarily reflect the actual time of the patient encounter. ROBERT VELOZ MD Sep 22, 2017 23:38
[2017-09-22] MEDS ORDERED: ONDANSETRON 4 MG INJ IV STA (23:49)
[2017-09-23] MEDS ORDERED: morphine 2 MG INJ IV ONE
--- NOTE | 2017-09-23 00:38 | RADRPT ---
PROCEDURE: Portable chest x-ray. CLINICAL INDICATION: Abdominal pain. TECHNIQUE: Portable AP view of the chest. COMPARISON: None. FINDINGS: No pulmonary edema or conolidation is identified. The cardiac silhouette is magnified. No pleural effusion is seen. There is no pneumothorax. There is no pneumoperitoneum. IMPRESSION: 1. No evidence of acute cardiopulmonary disease. 2. No pneumoperitoneum. RPTAT: HTAR .Kuldeep Clements MD, MD Date Time Electronically viewed and signed by .Kuldeep Clements MD, MD on 09/23/2017 00:37 .R/
[2017-09-23] MEDS ORDERED: HYDR-906 PO (03:30)
[2017-09-23] MEDS ORDERED: IBUP-1542 PO (03:30)
[2017-09-23 03:51] VITALS: BP 124/86; PULSE 84; RESP 20; TEMP 97.6
== END 2017-09-23 03:53 | disposition home or self-care (01) ==
LOC: E/R 23:08
DX: R07.2 Precordial pain (principal); M54.5 Low back pain; I10 Essential (primary) hypertension
CPT/HCPCS: 36415; 71010; 80053; 81003; 83690; 84484; 85025; 93005; 96374; 96375; 99285; J2270; J2405

== ENCOUNTER 2018-09-25 22:31 | Emergency (ER) | END 2018-09-26 02:03 | disposition home or self-care (01) ==